=== PATIENT | male | born 1985 | race American Indian/Alaskan Native ===

== ENCOUNTER 2017-03-05 19:05 | Emergency (ER) | payer SELFPAY ==
[2017-03-05 19:37] VITALS: BP 118/68
== END 2017-03-06 05:53 | disposition left against medical advice (07) ==
LOC: ED 19:05
DX: M25.511 Pain in right shoulder (principal); Z53.21 Procedure and treatment not carried out due to patient leaving prior to being seen by health care provider; V89.2XXA Person injured in unspecified motor-vehicle accident, traffic, initial encounter; Y93.89 Activity, other specified; Y92.410 Unspecified street and highway as the place of occurrence of the external cause; Y99.8 Other external cause status